=== PATIENT | male | born 1965 | race Caucasian/White ===

== ENCOUNTER → 2025-09-04 07:24 | Outpatient (REF) | payer OTHER, SELFPAY | LOC: HWRAD 07:24 | PROVIDERS: ATTENDING PHYSICIAN Family Medicine | DX: R03.0 Elevated blood-pressure reading, without diagnosis of hypertension (principal); N17.9 Acute kidney failure, unspecified; F41.9 Anxiety disorder, unspecified | CPT/HCPCS: 73130; 76775 ==

== ENCOUNTER → 2025-10-04 07:28 | Outpatient (REF) | payer OTHER, SELFPAY | LOC: PAVMRI 07:28 | PROVIDERS: ATTENDING PHYSICIAN Physician Assistant Medical; FAMILY PHYSICIAN Family Medicine | DX: M48.02 Spinal stenosis, cervical region (principal) | CPT/HCPCS: 72141 ==